=== PATIENT | female | born 1990 | race Caucasian/White ===

== ENCOUNTER → 2020-04-25 | Outpatient (CLI) | payer OTHER ==
--- NOTE | 2020-04-25 15:11 | REP ---
INDICATION: PAINFUL AND HEAVY MENSES. COMPARISON: None. TECHNIQUE: Transabdominal and transvaginal scanning performed. FINDINGS: Uterine dimensions are 7.8 x 4.5 x 5.4 cm. Endometrial echo is 13 mm in AP dimension and centrally placed. Uterus is retroverted. The bladder measures 4.7 x 8.7 x 1.9 cm. The right ovary has dimensions of 3.0 x 1.8 x 2.2 cm. It's Doppler flow is normal with a resistive index of 0.60. The left ovary dimensions are 2.7 x 2.3 x 2.0 cm. It's Doppler flow was normal with resistive index of 0.46. There is no adnexal mass identified. No free fluid is seen in the cul-de-sac. IMPRESSION: Negative pelvic ultrasound. <Electronically signed by Bandar Gomez > 04/25/20 [id number]
== END ==
LOC: M RAD 14:01
PROVIDERS: ATTEND Physician Assistant
DX: N93.9 Abnormal uterine and vaginal bleeding, unspecified (principal); N94.6 Dysmenorrhea, unspecified

== ENCOUNTER → 2020-08-03 | Outpatient (CLI) | payer OTHER ==
[~2020-08-03] MED LIST: AMPH1TAB2
== END ==
LOC: M LABSMTC 10:12
PROVIDERS: ATTEND Anesthesiology
DX: Z01.812 Encounter for preprocedural laboratory examination (principal); Z20.822 Contact with and (suspected) exposure to COVID-19

== ENCOUNTER 2020-08-08 09:14 | Day surgery (SDC) | payer OTHER ==
[2020-08-08] VITALS (7 sets, daily range): BP systolic 121–127; BP diastolic 75–85
[~2020-08-08] VITALS: Ht 162.6 cm; Wt 83.2 kg
[~2020-08-08 09:14] MED LIST changes: +ACETAMINOPHEN 1000MG 100ML IV BTL (OFIRMEV) (J0131 PER 10MG) As Ordered ONE; +LIDOCAINE 1% MDV 20ML VIAL SQ PRN; +LIDOCAINE 2% 100MG/5ML SDV (FOR ANES.) As Ordered ONE; +LR 1,000 ML IV ONE; +MIDAZOLAM INJ 2MG/2ML VIAL (J2250 PER 1MG) As Ordered ONE; +ONDANSETRON 4MG/2ML VIAL As Ordered ONE; +PHENYLephrine 500MCG 5ML (100MCG/ML) SYRINGE As Ordered ONE; +ROCURONIUM BROMIDE 50 MG/5 ML VIAL As Ordered ONE; +SUGAMMADEX SODIUM 500 MG/5 ML VIAL (BRIDION) As Ordered ONE; +ceFAZolin SOD 2 GM in IV 1 EA IV ONE; +dexameTHASONE 4 MG/ML 1ML VIAL (J1100 PER 1MG) As Ordered ONE; +ePHEDrine SULFATE 25 MG/5 ML(5MG/ML) SYRINGE As Ordered ONE; +fentaNYL 250 MCG/5 ML INJECTION (J3010) As Ordered ONE; +propofoL 200 MG/20 ML VIAL As Ordered ONE
[2020-08-08 09:59] LABS: HEMATOCRIT 39.2 % (36.0-47.0); HEMOGLOBIN 12.1 g/dl (12.0-15.5); MEAN CORPUSCULAR HEMOGLOBIN 26.8 pg (27.0-33.0); MEAN CORPUSCULAR HGB CONC 30.9 g/dl (32.0-36.5); MEAN CORPUSCULAR VOLUME 86.9 fl (80.0-96.0); PLATELET COUNT, AUTOMATED 319 10^3/uL (150-450); RED BLOOD COUNT 4.51 10^6/uL (4.00-5.40); WHITE BLOOD COUNT 7.3 10^3/uL (4.0-10.0)
[2020-08-08] MEDS ORDERED: KETOROLAC 60MG 2ML VIAL As Ordered ONE (11:08)
[2020-08-08] MEDS ORDERED: METOCLOPRAMIDE INJ 10MG/2ML VIAL (J2765 PER 1) IV PRN (13:00)
[2020-08-08] MEDS ORDERED: LR 1,000 ML IV SCH (13:00)
[2020-08-08] MEDS ORDERED: HYDROMORPHONE HCL 0.5 MG/ 0.5 ML SYRINGE (J1170 PER 1) IV PRN (13:00)
[2020-08-08] MEDS ORDERED: diphenhydrAMINE 50MG/ML VIAL (J1200) IV PRN (13:00)
[2020-08-08] MEDS ORDERED: MORPHINE 1MG/ML IN 0.9% NACL 100ML IV BAG IV PRN (13:00)
[2020-08-08] MEDS ORDERED: ONDANSETRON 4MG/2ML VIAL IV PRN (13:00)
[2020-08-08] MEDS ORDERED: NALOXONE INJ 0.4MG/1ML VIAL (J2310 PER 1MG) IV PRN (13:00)
[2020-08-08] MEDS ORDERED: PERCOCET 5MG/325MG TAB PO PRN (13:00)
[2020-08-08] MEDS ORDERED: EPIDURAL/PCA KEYS XX PRN (13:00)
[2020-08-08] MEDS ORDERED: NALBUPHINE HCL 10 MG/ML AMP (J2300) IV PRN (13:00)
[2020-08-08] MEDS: fentaNYL 100 MCG/2 ML INJECTION (J3010) IV PRN ×4 (13:03→13:25)
--- NOTE | 2020-08-08 13:41 | RO ---
OPERATIVE NOTE DATE OF OPERATION: 08/08/2020 PREOPERATIVE DIAGNOSIS/INDICATIONS FOR SURGERY: Pain and bleeding. POSTOPERATIVE DIAGNOSIS: Pain and bleeding. PROCEDURE: Total vaginal hysterectomy with right salpingectomy, left tube was scarred to the ovary and we left that in place because we did not want to disrupt the ovarian blood supply in this 30-year-old woman whose ovaries appeared normal. She did have some posterior uterine scarring in the cul-de-sac but no evidence of injury to the bowel as we removed the uterus and I think removal of that area of scarring is probably going to feel considerably better to her with her normal function in the future. SURGEON: Suma Kuo MD CALL CIRCUIT WORKER: None. ANESTHESIA: General endotracheal anesthesia. SPECIMEN: Uterus and right tube. BRIEF DESCRIPTION OF PROCEDURE/FINDINGS: Chelsey was brought to the operating room where sufficient general endotracheal anesthesia was induced. She was prepped, draped and positioned in the usual sterile fashion. Bladder emptied and the cervix grasped with single tooth tenaculum. Circumferential incision was made around the base of the cervix and the cardinal ligaments were isolated, clamped, transected and ligated. We then continued the dissection posteriorly and there was an atypically rough texture to the tissue so we just worked our way step by step throughout the tissues and we also dissected anteriorly and had no difficulty in deflecting the bladder away from the field of dissection and working with good anterior control we controlled the uterine vasculature and continued to deliver the uterus. Of course we had the uterosacrals which we held for reattachment and worked our way through scar tissue posteriorly, being careful not to injure the bowel. As we progressed along the lateral aspect of the uterus the remainder of the uterine vasculature supply we reached the uteroovarian suspensory ligaments and these were clamped, transected and ligated. The right tube was carefully dissected out, it was still attached and as extension of those pedicles developed we were able to control it step by step, deliver the uterus with the right tube and fimbria attached. On the left side the tube was under quite a bit of tension and then evaluation we could see that ovary but the fimbria was just plastered to it and felt that we would risk that ovarian blood supply if we continued the dissection there so we left the left fallopian tube in place but the right fallopian tube came out with the uterus. Pedicles were carefully evaluated. We had good hemostasis. Angle stitches of #0 Vicryl were placed and we were careful around that area of posterior scarring. We re-secured the uterosacrals in this young patient and closed the vaginal wound with running locked stitch of #0 Vicryl with good approximation and hemostasis achieved. The procedure was then ended. A Harrison was placed at the end of the case. EBL: 110 mL. FLUID REPLACEMENT: Crystalloid. COMPLICATIONS: None. CONDITION AND DISPOSITION: Chelsey tolerated the procedure well and was recovering in the recovery room in good condition.
[2020-08-08] MEDS: LR 1,000 ML IV SCH ×2 (15:05→22:04)
[2020-08-08] MEDS ORDERED: PROMETHAZINE INJ 25 MG/ML VIAL (J2550) IV ONE (21:45)
[2020-08-08 22:03] LABS: HEMATOCRIT 30.5 % (36.0-47.0)
[2020-08-08 22:08] LABS: HEMOGLOBIN 9.6 g/dl (12.0-15.5)
[2020-08-09 02:00] VITALS: BP 125/76
[2020-08-09 06:00] VITALS: BP 126/78
[2020-08-09 06:09] LABS: HEMATOCRIT 27.9 % (36.0-47.0); HEMOGLOBIN 8.7 g/dl (12.0-15.5); MEAN CORPUSCULAR HEMOGLOBIN 26.8 pg (27.0-33.0); MEAN CORPUSCULAR HGB CONC 31.2 g/dl (32.0-36.5); MEAN CORPUSCULAR VOLUME 85.8 fl (80.0-96.0); PLATELET COUNT, AUTOMATED 310 10^3/uL (150-450); RED BLOOD COUNT 3.25 10^6/uL (4.00-5.40)
[2020-08-09] MEDS: LR 1,000 ML IV SCH (06:15)
[2020-08-09] MEDS ORDERED: IBUPROFEN 600MG TAB PO PRN (09:55)
[2020-08-09 10:00] VITALS: BP 129/74
[2020-08-09] MEDS ORDERED: B-12100021 PO (10:08)
[2020-08-09] MEDS ORDERED: IBUP-1022 PO (10:08)
[2020-08-09] MEDS ORDERED: HYDR-3715 PO (10:08)
== END 2020-08-09 11:15 | disposition home or self-care (01) ==
LOC: M SDC 09:14 → M MSPAV 14:36 → M SDC 08-09 11:15
PROVIDERS: ATTEND Obstetrics & Gynecology
DX: N80.0 Endometriosis of uterus (principal); G43.909 Migraine, unspecified, not intractable, without status migrainosus; F90.9 Attention-deficit hyperactivity disorder, unspecified type; J30.2 Other seasonal allergic rhinitis; F17.290 Nicotine dependence, other tobacco product, uncomplicated; Z79.899 Other long term (current) drug therapy
CPT/HCPCS: 36415; 58262; 81025; 85014; 85018; 85027; 86850; 86900; 86901; 88307; 96361; 96374; J0131; J0690; J1100; J1885; J2250; J2370; J2405; J3010

== ENCOUNTER 2020-08-11 09:10 | Emergency (ER) | payer OTHER ==
[~2020-08-11] VITALS: Ht 162.6 cm; Wt 83.3 kg
[~2020-08-11 09:10] MED LIST changes: -ACETAMINOPHEN 1000MG 100ML IV BTL (OFIRMEV) (J0131 PER 10MG) As Ordered ONE; +B-12100021 PO; +HYDR-3715 PO; +IBUP-1022 PO; -LIDOCAINE 1% MDV 20ML VIAL SQ PRN; -LIDOCAINE 2% 100MG/5ML SDV (FOR ANES.) As Ordered ONE; -LR 1,000 ML IV ONE; -MIDAZOLAM INJ 2MG/2ML VIAL (J2250 PER 1MG) As Ordered ONE; -ONDANSETRON 4MG/2ML VIAL As Ordered ONE; -PHENYLephrine 500MCG 5ML (100MCG/ML) SYRINGE As Ordered ONE; -ROCURONIUM BROMIDE 50 MG/5 ML VIAL As Ordered ONE; -SUGAMMADEX SODIUM 500 MG/5 ML VIAL (BRIDION) As Ordered ONE; -ceFAZolin SOD 2 GM in IV 1 EA IV ONE; -dexameTHASONE 4 MG/ML 1ML VIAL (J1100 PER 1MG) As Ordered ONE; -ePHEDrine SULFATE 25 MG/5 ML(5MG/ML) SYRINGE As Ordered ONE; -fentaNYL 250 MCG/5 ML INJECTION (J3010) As Ordered ONE; -propofoL 200 MG/20 ML VIAL As Ordered ONE
[2020-08-11] MEDS ORDERED: ACETAMINOPHEN TAB 650MG DOSE (2X325MG) PO ONE ×2 (09:55→11:50)
[2020-08-11 10:12] LABS: BASO % 0.3 % (0.0-1.0); EOS # 0.3 10^3/uL (0.0-0.5); EOS % 3.1 % (0.0-3.0); HEMATOCRIT 28.9 % (36.0-47.0); HEMOGLOBIN 8.9 g/dl (12.0-15.5); LYMPH # 1.5 10^3/uL (1.5-5.0); LYMPH % 14.6 % (24.0-44.0); MEAN CORPUSCULAR HGB CONC 30.8 g/dl (32.0-36.5); MEAN CORPUSCULAR VOLUME 87.6 fl (80.0-96.0); MONO # 0.7 10^3/uL (0.0-0.8); MONO % 6.7 % (2.0-8.0); NEUTROPHILS # 7.7 10^3/uL (1.5-8.5); NEUTROPHILS % 74.8 % (36.0-66.0); PLATELET COUNT, AUTOMATED 260 10^3/uL (150-450); WHITE BLOOD COUNT 10.3 10^3/uL (4.0-10.0)
[2020-08-11 10:40] LABS: BLOOD UREA NITROGEN 6 MG/DL (7-18); CALCIUM LEVEL 8.7 MG/DL (8.5-10.1); CARBON DIOXIDE LEVEL 28 MEQ/L (21-32); CHLORIDE LEVEL 104 MEQ/L (98-107); CREATININE FOR GFR 0.62 MG/DL (0.55-1.30); GLOMERULAR FILTRATION RATE > 60.0 (>60); GLUCOSE, FASTING 103 MG/DL (70-100); POTASSIUM SERUM 3.7 MEQ/L (3.5-5.1); SODIUM LEVEL 139 MEQ/L (136-145)
--- NOTE | 2020-08-11 10:46 | REP ---
INDICATION: post op fever COMPARISON: None. TECHNIQUE: Portable AP view of the chest FINDINGS: The mediastinum and cardiac silhouette are within normal limits for portable technique. The lung coleman are clear without acute consolidation, effusion, or pneumothorax. Skeletal structures are intact. IMPRESSION: No acute cardiopulmonary process appreciated. <Electronically signed by Lonny Terry > 08/11/20 [id number]
[2020-08-11] MEDS ORDERED: ceFAZolin SOD 1 GM in D5W MINI-BAG PLUS 50 ML IV ONE (12:15)
[2020-08-11] MEDS ORDERED: CEPH500C PO (12:51)
[2020-08-11 13:10] VITALS: BP 113/62
== END 2020-08-11 13:12 | disposition home or self-care (01) ==
LOC: M ED 09:10
DX: R50.82 Postprocedural fever (principal); Z79.899 Other long term (current) drug therapy
CPT/HCPCS: 71045; 80048; 81001; 83605; 85025; 86850; 86900; 86901; 87040; 93041; 94760; 96365; 99285; J0690

== ENCOUNTER 2020-08-18 09:11 | Emergency (ER) | payer OTHER ==
[~2020-08-18] VITALS: Ht 162.6 cm; Wt 81.8 kg
[~2020-08-18 09:11] MED LIST changes: +CEPH500C PO
[2020-08-18] MEDS ORDERED: NS 500 ML IV ONE (09:35)
[2020-08-18 10:00] LABS: BASO % 0.2 % (0.0-1.0); EOS # 0.2 10^3/uL (0.0-0.5); EOS % 2.4 % (0.0-3.0); HEMOGLOBIN 9.3 g/dl (12.0-15.5); LYMPH # 1.3 10^3/uL (1.5-5.0); MEAN CORPUSCULAR HEMOGLOBIN 27.1 pg (27.0-33.0); MEAN CORPUSCULAR VOLUME 87.5 fl (80.0-96.0); MONO # 0.6 10^3/uL (0.0-0.8); MONO % 6.4 % (2.0-8.0); NEUTROPHILS # 7.6 10^3/uL (1.5-8.5); NEUTROPHILS % 77.4 % (36.0-66.0); PLATELET COUNT, AUTOMATED 409 10^3/uL (150-450); RED BLOOD COUNT 3.43 10^6/uL (4.00-5.40); WHITE BLOOD COUNT 9.8 10^3/uL (4.0-10.0)
[2020-08-18 10:37] LABS: ALBUMIN 3.5 GM/DL (3.2-5.2); BILIRUBIN,DIRECT 0.2 MG/DL (0.0-0.2); BILIRUBIN,TOTAL 0.5 MG/DL (0.2-1.0); TOTAL PROTEIN 6.8 GM/DL (6.4-8.2)
[2020-08-18] MEDS ORDERED: ISOVUE-370 76% 100ML VIAL As Ordered ONE (10:50)
--- NOTE | 2020-08-18 12:04 | REP ---
INDICATION: hx vag hyster, vag bldg. COMPARISON: None TECHNIQUE: Axial contrast-enhanced images from the lung bases to the pubic symphysis using 100 cc Isovue 370 intravenous contrast material. Coronal and sagittal reformations obtained. This CT examination was performed using the following dose reduction techniques: Automated exposure control, adjustment of mA and/or kv according to the patient's size, and the use of iterative reconstruction technique. FINDINGS: A moderate amount of mildly high dense fluid is noted within the pelvis along with mesenteric inflammatory stranding which may be related to the given history of hysterectomy and suggest mixed ascites and hemorrhagic fluid. Findings appear to cause a secondary mild inflammatory enterocolitis of the small and large bowel within the pelvis. No free air. No discrete rim enhanced abscess. No evidence for bowel obstruction. Liver, spleen, pancreas, gallbladder, bilateral adrenal glands and kidneys are normal. Abdominal aorta and vasculature are normal. Surrounding musculoskeletal structures are intact. Lung bases are clear. Visualized heart and pericardium normal. IMPRESSION: Presumed moderate amount of mixed ascites and hemorrhagic fluid within the pelvis along with inflammatory fat stranding likely related to the given history of recent hysterectomy and require further investigation. No discrete rim enhancing abscess or free air identified. Inflammatory enterocolitis secondary to the above-mentioned changes suggested. <Electronically signed by Lonny Terry > 08/18/20 1200
[2020-08-18] MEDS ORDERED: CIPROFLOXACIN 250MG TAB PO ONE (12:20)
[2020-08-18] MEDS ORDERED: CIPR-249 PO (12:21)
[2020-08-18 12:46] VITALS: BP 139/77
== END 2020-08-18 13:00 | disposition home or self-care (01) ==
LOC: EDBD 09:11 → M ED 09:11
DX: N99.820 Postprocedural hemorrhage of a genitourinary system organ or structure following a genitourinary system procedure (principal); F90.9 Attention-deficit hyperactivity disorder, unspecified type; J30.89 Other allergic rhinitis; Z79.899 Other long term (current) drug therapy
CPT/HCPCS: 74177; 80047; 80076; 82150; 83605; 83690; 85025; 87040; 93041; 96360; 99285; Q9967

== ENCOUNTER → 2020-08-29 | Outpatient (CLI) | payer OTHER ==
[~2020-08-29] MED LIST changes: +CIPR-249 PO
[2020-08-29 15:23] LABS: BASO % 0.3 % (0.0-1.0); EOS # 0.2 10^3/uL (0.0-0.5); EOS % 1.7 % (0.0-3.0); HEMATOCRIT 32.5 % (36.0-47.0); HEMOGLOBIN 9.6 g/dl (12.0-15.5); LYMPH # 2.1 10^3/uL (1.5-5.0); LYMPH % 20.7 % (24.0-44.0); MEAN CORPUSCULAR HEMOGLOBIN 25.5 pg (27.0-33.0); MEAN CORPUSCULAR HGB CONC 29.5 g/dl (32.0-36.5); MEAN CORPUSCULAR VOLUME 86.2 fl (80.0-96.0); MONO # 0.6 10^3/uL (0.0-0.8); MONO % 6.5 % (2.0-8.0); NEUTROPHILS % 70.3 % (36.0-66.0); PLATELET COUNT, AUTOMATED 467 10^3/uL (150-450); RED BLOOD COUNT 3.77 10^6/uL (4.00-5.40); WHITE BLOOD COUNT 9.9 10^3/uL (4.0-10.0)
[2020-08-29 15:56] LABS: PERCENT SATURATION 6.1 % (13.2-45.0)
== END ==
LOC: M PLALAB 13:32
PROVIDERS: ATTEND Family Medicine
DX: D50.9 Iron deficiency anemia, unspecified (principal)

== ENCOUNTER 2020-09-09 11:17 | Outpatient (CLI) | payer OTHER ==
[~2020-09-09] VITALS: Ht 162.6 cm; Wt 79.1 kg
[2020-09-09 11:20] VITALS: BP 123/74
[2020-09-09] MEDS ORDERED: FERRIC CARBOXYMALTOSE INJ 750 MG, VIAL MATE ADAPTER 1 EACH in NS 250 ML IV ONE (11:35)
[2020-09-09 12:15] VITALS: BP 113/70
[2020-09-09 13:15] VITALS: BP 125/61
[2020-09-09 14:00] VITALS: BP 128/71
== END 2020-09-09 14:00 | disposition home or self-care (01) ==
LOC: M INFU 11:17
PROVIDERS: ATTEND Family Medicine
DX: D50.9 Iron deficiency anemia, unspecified (principal)
CPT/HCPCS: 96365; 96366; J1439

== ENCOUNTER 2020-09-16 13:29 | Outpatient (CLI) | payer OTHER ==
[~2020-09-16] VITALS: Ht 162.6 cm; Wt 79.1 kg
[~2020-09-16 13:29] MED LIST changes: +FERRIC CARBOXYMALTOSE INJ 750 MG, VIAL MATE ADAPTER 1 EACH in NS 250 ML IV ONE
[2020-09-16 13:35] VITALS: BP 116/65
[2020-09-16 15:28] VITALS: BP 110/67
== END 2020-09-16 15:30 | disposition home or self-care (01) ==
LOC: M INFU 13:29
PROVIDERS: ATTEND Family Medicine
DX: D50.9 Iron deficiency anemia, unspecified (principal)
CPT/HCPCS: 96365; 96366; J1439